=== PATIENT | female | born 1985 | race African-American/Black ===

== ENCOUNTER 2024-12-13 18:15 | Emergency (ER) | payer BC, OTHER ==
[~2024-12-13] VITALS: Ht 170.2 cm; Wt 100.0 kg
[2024-12-13 18:18] VITALS: O2SAT 98
[2024-12-13] MEDS: MORPHINE SULFATE 4 MG/ML INJ (FOR IV/IM USE) IV ONE (18:53)
[2024-12-13] MEDS: ONDANSETRON HCL 4MG/2ML INJ IV ONE (18:53)
[2024-12-13 18:54] VITALS: TEMP 36.6
[2024-12-13 19:05] LABS: BASOPHILS % 1.1 % (0.0-2.0); EOSINOPHILS % 3.9 % (0.0-5.0); HEMATOCRIT. 33.8 % (36.0-48.0); HEMOGLOBIN. 11.2 g/dL (12.0-16.0); LYMPHOCYTES % 23.8 % (20.0-50.0); MEAN PLATELET VOLUME 7.7 fl (7.4-10.4); MONOCYTES % 6.2 % (2.0-8.0); NEUTROPHILS % 65.0 % (40.0-76.0); PLATELET 492 x1000/uL (130-400); RED BLOOD CELL COUNT 3.81 mill/uL (4.2-5.4); RED CELL DISTRIBUTION WIDTH 14.3 % (11.6-14.6)
[2024-12-13 19:13] LABS: CREATININE 0.8 mg/dL (0.6-1.0)
[2024-12-13 19:14] LABS: HCG SCREEN INDETERMINATE; TROPONIN I HIGH SENSITIVITY < 4 ng/L (3.0-34); UREA NITROGEN BLOOD 11 mg/dL (9-23)
[2024-12-13 19:15] LABS: ASPARTATE AMINOTRANSFERASE 19 IU/L (<34)
[2024-12-13 19:16] LABS: BILIRUBIN DIRECT < 0.1 mg/dL (<=3.0); BILIRUBIN TOTAL 0.4 mg/dL (0.1-1.0); PROTEIN TOTAL 6.7 g/dL (6.0-8.3)
[2024-12-13 21:18] LABS: TROPONIN I HIGH SENSITIVITY < 4 ng/L (3.0-34)
[2024-12-13 21:35] VITALS: BP 136/91; PULSE 68; RESP 19; O2SAT 98
[2024-12-13] MEDS ORDERED: IOHEXOL-350 100 ML BOTTLE ONE (21:39)
== END 2024-12-13 21:38 | disposition home or self-care (01) ==
LOC: ER 18:15
DX: R07.89 Other chest pain (principal); Z88.0 Allergy status to penicillin; Z98.890 Other specified postprocedural states
CPT/HCPCS: 80076; 80048; 84703; 83880; 83735; 85025; 86850; 86900; 86901; 84484; 36415; 71045; 71275; 93005; 96374; 96375; 99285; Q9967; J2405; J2270; Z7610